=== PATIENT | male | born 1950 | race Caucasian/White ===

== ENCOUNTER 2019-01-25 06:00 | Outpatient (RCR) | payer MEDICARE, SELFPAY | END 2019-02-24 00:01 | LOC: GPT 06:00 | PROVIDERS: Family Provider Family Medicine; Visit Provider Orthopaedic Surgery | DX: Z47.1 Aftercare following joint replacement surgery (principal); Z96.612 Presence of left artificial shoulder joint | CPT/HCPCS: 97110 ×3; 97140 ×3 ==

== ENCOUNTER 2019-02-25 06:00 | Outpatient (RCR) | payer MEDICARE, SELFPAY | END 2019-03-27 23:59 | disposition home or self-care (01) | LOC: GPT 06:00 | PROVIDERS: Family Provider Family Medicine; PCP Family Medicine; Visit Provider Orthopaedic Surgery | DX: M25.512 Pain in left shoulder (principal); M25.612 Stiffness of left shoulder, not elsewhere classified; Z96.612 Presence of left artificial shoulder joint ==